=== PATIENT | male | born 1945 | race Caucasian/White ===

== ENCOUNTER 2018-01-26 11:12 | Inpatient (IN) | payer OTHER ==
[2018-01-26] MEDS ORDERED: NA CHLORIDE 0.9% 3,000 ML ONE (11:40)
--- NOTE | 2018-01-26 12:22 | RAD REPORT ---
EXAM DESCRIPTION: RAD - Chest Single View - 01/26/2018 12:13 pm CLINICAL HISTORY: FEVER Chest pain. COMPARISON: No comparisons FINDINGS: Portable technique limits examination quality. Several pulmonary nodules are present bilaterally, largest measuring about 2 cm in the right upper lo be. The lungs are clear of acute infiltrate. The heart is normal in size. No displaced fractures.Left -sided port catheter tip in the SVC.
[2018-01-26 12:33] LABS: Absolute Lymphocytes (CBC) 0.1 K/uL (0.7-4.9); Absolute Monocytes 0.1 K/uL (0.1-1.3); Absolute Neutrophil 1.6 K/uL (1.8-8.0); Basophils % 0.1 % (0-1.3); Eosinophils % 0.8 % (0-4.4); Hematocrit 35.5 % (39.6-49.0); Lymphocytes % 3.9 % (15.3-44.8); MCH 28.4 pg (27.0-35.0); MCV 84.8 fL (80-100); MPV 7.6 fL (7.6-11.3); Monocytes % 6.2 % (3.3-12.3); RBC Red Blood Cell Count 4.18 M/uL (4.33-5.43)
[2018-01-26 12:34] LABS: Protime INR 1.34
[2018-01-26 12:36] LABS: ALT/SGPT 32 U/L (12-78); AST/SGOT 32 U/L (15-37); Albumin 2.8 g/dL (3.4-5.0); Alkaline Phosphatase 62 U/L (45-117); BUN Blood Urea Nitrogen 62 mg/dL (7-18); Bicarbonate 17 mmol/L (21-32); Bilirubin Direct 0.3 mg/dL (0-0.2); Bilirubin Total 0.6 mg/dL (0.2-1.0); CKMB Creatine Kinase MB < 1.0 ng/mL (0.3-3.6); Creatine Phosphokinase 222 U/L (39-308); Glucose Level 93 mg/dL (74-106); Lipase 301 U/L (73-393); Protein, Total 7.9 g/dL (6.4-8.2); Sodium Level 127 mmol/L (136-145); Troponin (Emerg Dept Use Only) < 0.02 ng/mL (0.0-0.045)
--- NOTE | 2018-01-26 13:00 | ER ---
Nurse's Notes [facility] Name: Camilla Haque Age: 72 yrs Sex: Male : 1945 Arrival Date: 01/26/2018 Time: 11:17 Bed 8 Private MD: out of town, doctor Diagnosis: Neutropenia, unspecified;Fever, unspecified;Urinary tract infection, site not specified Presentation: 01/26 11:19 Presenting complaint: Patient states: I have stage 4 bladder cancer and a I had a chemo la1 treatment on Saturday, starting on Saturday I have been having low grade intermittent fever and night sweats. Transition of care: patient was not received from another setting of care. Transition of care: patient was not received from another setting of care. Onset of symptoms was January 26, 2018. Risk Assessment: Do you want to hurt yourself or someone else? Patient reports no desire to harm self or others. Initial Sepsis Screen: Does the patient meet any 2 criteria? No. Patient's initial sepsis screen is negative. Does the patient have a suspected source of infection? No. Patient's initial sepsis screen is negative. Care prior to arrival: None. 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 - Social history:: Smoking status: Patient/guardian denies using tobacco. - Ebola Screening: : No symptoms or risks identified at this time. Screenin:10 Abuse screen: Denies threats or abuse. Denies injuries from another. Nutritional hb screening: No deficits noted. Tuberculosis screening: No symptoms or risk factors identified. Fall Risk Total Levin Fall Scale indicates Low Risk Score (25-44 pts). Fall prevention measures have been instituted. Side Rails Up X 2 Frequent Obs/Assesments occuring Family Present and informed to notify staff if they need to leave bedside As available Patient and Family Educated on Fall Prevention Program and strategies. Assessment: 11:44 General: Appears in no apparent distress. Behavior is calm, cooperative. Pain: Denies hb pain. Neuro: Level of Consciousness is awake, alert, obeys commands, Oriented to person, place, time, situation. Cardiovascular: Capillary refill < 3 seconds Patient's skin is warm and dry. Respiratory: Airway is patent Respiratory effort is even, unlabored, Respiratory pattern is regular, symmetrical, Breath sounds are clear bilaterally. GI: No signs and/or symptoms were reported involving the gastrointestinal system. : No signs and/or symptoms were reported regarding the genitourinary system. EENT: No signs and/or symptoms were reported regarding the EENT system. Derm: Skin is pink, warm \T\ dry. Musculoskeletal: No signs and/or symptoms reported regarding the musculoskeletal system. 12:30 Reassessment: Patient appears in no apparent distress at this time. No changes from hb previously documented assessment. Patient and/or family updated on plan of care and expected duration. Pain level reassessed. Patient is alert, oriented x 3, equal unlabored respirations, skin warm/dry/pink. Vital Signs: 11:20 BP 112 / 75; Pulse 110; Resp 19; Temp 100.6; Pulse Ox 98% on R/A; Weight 83.01 kg; la1 Height 5 ft. 9 in. (175.26 cm); 13:58 BP 108 / 58; Pulse 89; Resp 16 S; Pulse Ox 100% on R/A; Pain 0/10; sg 15:01 BP 133 / 87 LA Sitting (auto/reg); Pulse 95; Resp 16; Pulse Ox 100% on R/A; Pain 0/10; jp3 15:30 Temp 101.8(O); jp3 16:11 Temp 98.9; kr2 16:20 BP 145 / 90; Pulse 115; Resp 17; Temp 98.9; Pulse Ox 100% on R/A; Pain 0/10; sg 11:20 Body Mass Index 27.02 (83.01 kg, 175.26 cm) la1 ED Course: 11:17 Patient arrived in ED. mr 11:18 out of town, doctor is Private Physician. mr 11:20 Triage completed. la1 11:21 Arm band placed on right wrist. la1 11:26 Christiano Gracia NP is PHCP. pm1 11:26 Malik Thayer MD is Attending Physician. pm1 11:30 Alex Urbina RN is Primary Nurse. sg 11:45 No provider procedures requiring assistance completed. Patient did not have IV access sg during this emergency room visit. 12:00 Inserted saline lock: 20 gauge in right antecubital area, using aseptic technique. jp3 Blood collected. 12:00 Initial lab(s) drawn, by me, sent to lab. First set of blood cultures drawn Flu and/or jp3 RSV swab sent to lab. 12:11 X-ray completed. Portable x-ray completed in exam room. Patient tolerated procedure sg4 well. 12:14 Chest Single View XRAY In Process Unspecified. EDMS 12:15 Second set of blood cultures drawn by me. jp3 12:20 Urine collected: clean catch specimen, cloudy, hermann colored, Amount Voided: 80mL EKG jp3 done, by ED staff, reviewed by Christiano Gracia NP. 12:24 Placed in gown. Bed in low position. Call light in reach. Side rails up X 1. Side rails jp3 up X2. classroom monitor on. Pulse ox on. NIBP on. 12:28 Notified ED physician of a critical lab result(s). 1.8 WBC and PLT 41, DRU Alvarado em notified. 12:40 Flu Sent. jp3 12:58 Naa Domingo MD is Hospitalizing Provider. pm1 14:10 Notified the admitting physician of a critical lab result(s), bands 9, called to Dr. Debbie Domingo, no new orders at this time. 15:04 Warm blanket given. Pillow given. jp3 15:07 Urine Culture Sent. jp3 15:35 Notified Nurse Practitioner and/or Physician Punching Machine Operator of vital signs. kr2 Administered Medications: 11:58 Drug: NS 0.9% (30 ml/kg) 30 ml/kg Route: IV; Rate: bolus; Site: right antecubital; hb 13:00 Drug: Cefepime 2 grams Route: IVPB; Rate: 200 ml/hr; Infused Over: 30 mins; Site: right sg antecubital; 17:13 Follow up: Response: No adverse reaction; IV Status: Completed infusion sg 15:42 Drug: Tylenol 1000 mg Route: PO; kr2 16:20 Follow up: Response: No adverse reaction; Temperature is decreased sg Outcome: 13:00 Decision to Hospitalize by Provider. pm1 14:20 Admitted to Tele accompanied by jyoti, via stretcher, room 427, with chart, Report sg called to AMAN Escalona 14:20 Condition: stable 14:20 Instructed on the need for admit, safety practices, Demonstrated understanding of instructions. 16:44 Patient left the ED. em Signatures: Dispatcher [employer] EDAlex Scott, RN RN parvez Jose AlfredoLidia mr Anderson, Caio, WINDOWS SYSTEMS ARCHITECT WINDOWS SYSTEMS ARCHITECT em David Winters RN RN la1 Christiano Gracia, BI DATA MODELER BI DATA MODELER pm1 Raine Ma RN RN hb Reaves, Karey, RN RN nick2 Isma Rene jp3 Jelly Rodríguez sg4
--- NOTE | 2018-01-26 13:00 | EDPHYS ---
Physician Documentation [facility] Name: Camilla Haque Age: 72 yrs Sex: Male : 1945 Arrival Date: 01/26/2018 Time: 11:17 Bed 8 Private MD: out of town, doctor ED Physician Malik Thayer HPI: 01/26 12:00 This 72 yrs old Male presents to ER via Ambulatory with complaints of Fever. pm1 12:00 The patient reports fever, that was measured at 100.6 degrees Fahrenheit. Onset: The pm1 symptoms/episode began/occurred 3 day(s) ago. Modifying factors: Recent chemotherapy on Saturday. First chemotherapy treatment for stage 4 bladder cancer. Associated signs and symptoms: Pertinent positives: chills, night sweats, Occasional cough, Pertinent negatives: abdominal pain, altered mental status, chest pain, diarrhea, headache, shortness of breath, vomiting. Severity of symptoms: in the emergency department the symptoms are unchanged. The patient has not experienced similar symptoms in the past. chemotherapy on Saturday. patient with a history of stage 4 bladder cancer treated with neobladder surgery at the beginning of the year. First treatment of chemotherapy on Saturday. Jorge A Galloway MD Oncologist at [facility]. 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 - Social history:: Smoking status: Patient/guardian denies using tobacco. - Ebola Screening: : No symptoms or risks identified at this time. ROS: 12:00 Eyes: Negative for injury, pain, redness, and discharge, ENT: Negative for injury, pm1 pain, and discharge, Neck: Negative for injury, pain, and swelling, Cardiovascular: Negative for chest pain, palpitations, and edema, Respiratory: Negative for shortness of breath, wheezing, and pleuritic chest pain. Occasional cough Abdomen/GI: Negative for abdominal pain, nausea, vomiting, diarrhea, and constipation, Back: Negative for injury and pain, : Negative for injury, bleeding, discharge, and swelling, MS/Extremity: Negative for injury and deformity, Skin: Negative for injury, rash, and discoloration, Neuro: Negative for headache, weakness, numbness, tingling, and seizure. 12:00 Constitutional: Positive for chills, fever, Negative for poor PO intake. Exam: 12:00 Constitutional: This is a well developed, well nourished patient who is awake, alert, pm1 and in no acute distress. Head/Face: Normocephalic, atraumatic. Eyes: Pupils equal round and reactive to light, extra-ocular motions intact. Lids and lashes normal. Conjunctiva and sclera are non-icteric and not injected. Cornea within normal limits. Periorbital areas with no swelling, redness, or edema. ENT: Nares patent. No nasal discharge, no septal abnormalities noted. Tympanic membranes are normal and external auditory canals are clear. Oropharynx with no redness, swelling, or masses, exudates, or evidence of obstruction, uvula midline. Mucous membranes moist. Neck: Trachea midline, no thyromegaly or masses palpated, and no cervical lymphadenopathy. Supple, full range of motion without nuchal rigidity, or vertebral point tenderness. No Meningismus. Chest/axilla: Normal chest wall appearance and motion. Nontender with no deformity. No lesions are appreciated. Cardiovascular: Regular rate and rhythm with a normal S1 and S2. No gallops, murmurs, or rubs. Normal PMI, no JVD. No pulse deficits. Respiratory: Lungs have equal breath sounds bilaterally, clear to auscultation and percussion. No rales, rhonchi or wheezes noted. No increased work of breathing, no retractions or nasal flaring. 12:00 Back: No spinal tenderness. No costovertebral tenderness. Full range of motion. Skin: Warm, dry with normal turgor. Normal color with no rashes, no lesions, and no evidence of cellulitis. MS/ Extremity: Pulses equal, no cyanosis. Neurovascular intact. Full, normal range of motion. 12:00 Abdomen/GI: Inspection: scar(s), are noted in the umbilical area and suprapubic area, Bowel sounds: normal, Palpation: abdomen is soft and non-tender, in all quadrants. 12:00 Neuro: Orientation: is normal, Motor: is normal, Sensation: is normal, no obvious gross deficits. Vital Signs: 11:20 BP 112 / 75; Pulse 110; Resp 19; Temp 100.6; Pulse Ox 98% on R/A; Weight 83.01 kg; la1 Height 5 ft. 9 in. (175.26 cm); 13:58 BP 108 / 58; Pulse 89; Resp 16 S; Pulse Ox 100% on R/A; Pain 0/10; sg 15:01 BP 133 / 87 LA Sitting (auto/reg); Pulse 95; Resp 16; Pulse Ox 100% on R/A; Pain 0/10; jp3 15:30 Temp 101.8(O); jp3 16:11 Temp 98.9; kr2 16:20 BP 145 / 90; Pulse 115; Resp 17; Temp 98.9; Pulse Ox 100% on R/A; Pain 0/10; sg 11:20 Body Mass Index 27.02 (83.01 kg, 175.26 cm) la1 MDM: 11:27 Patient medically screened. pm1 12:58 Data reviewed: vital signs. Data interpreted: Pulse oximetry: on room air is 98 %. pm1 Interpretation: normal. Counseling: I had a detailed discussion with the patient and/or guardian regarding: the historical points, exam findings, and any diagnostic results supporting the discharge/admit diagnosis, lab results, radiology results, the need for further work-up and treatment in the hospital. 13:04 Physician consultation: Naa Domingo MD was called at 13:05, was contacted at 13:05, pm1 regarding admission, patient's condition, and will see patient. 01/26 11:27 Order name: Urine Culture pm1 01/26 11:27 Order name: Basic Metabolic Panel; Complete Time: 12:40 pm1 01/26 11:27 Order name: Blood Culture Adult (2) pm1 01/26 11:27 Order name: CBC with Diff; Complete Time: 14:07 pm1 01/26 11:27 Order name: Ckmb; Complete Time: 12:40 pm1 01/26 11:27 Order name: CPK; Complete Time: 12:40 pm1 01/26 11:27 Order name: Lactate; Complete Time: 12:40 pm1 01/26 11:27 Order name: LFT's; Complete Time: 12:40 pm1 01/26 11:27 Order name: Lipase; Complete Time: 12:40 pm1 01/26 11:27 Order name: Procalcitonin; Complete Time: 12:48 pm1 01/26 11:27 Order name: Protime (+inr); Complete Time: 12:40 pm1 01/26 11:27 Order name: Ptt, Activated; Complete Time: 12:40 pm1 01/26 11:27 Order name: Troponin (emerg Dept Use Only); Complete Time: 12:40 pm1 01/26 11:27 Order name: Urine Microscopic Only; Complete Time: 13:20 pm1 01/26 11:27 Order name: Chest Single View XRAY; Complete Time: 12:25 pm1 01/26 11:27 Order name: Accucheck; Complete Time: 12:01 pm1 01/26 11:27 Order name: Cardiac monitoring; Complete Time: 12:01 pm1 01/26 11:27 Order name: EKG - Nurse/Tech; Complete Time: 12:09 pm1 01/26 11:27 Order name: IV Saline Lock - Large Bore; Complete Time: 12:01 pm1 01/26 11:27 Order name: Labs collected and sent; Complete Time: 12:01 pm1 01/26 11:27 Order name: O2 Per Protocol; Complete Time: 12:01 pm1 01/26 11:27 Order name: O2 Sat Monitoring; Complete Time: 12:01 pm1 01/26 11:27 Order name: Urine Dipstick-Ancillary (obtain specimen); Complete Time: 12:34 pm1 01/26 11:27 Order name: Flu; Complete Time: 12:45 pm1 01/26 12:36 Order name: CBC Smear Scan; Complete Time: 13:32 EDMS 01/26 12:45 Order name: Urine Dipstick--Ancillary (enter results); Complete Time: 14:53 ms 01/26 13:53 Order name: Manual Differential; Complete Time: 14:07 EDMS Administered Medications: 11:58 Drug: NS 0.9% (30 ml/kg) 30 ml/kg Route: IV; Rate: bolus; Site: right antecubital; hb 13:00 Drug: Cefepime 2 grams Route: IVPB; Rate: 200 ml/hr; Infused Over: 30 mins; Site: right sg antecubital; 17:13 Follow up: Response: No adverse reaction; IV Status: Completed infusion sg 15:42 Drug: Tylenol 1000 mg Route: PO; kr2 16:20 Follow up: Response: No adverse reaction; Temperature is decreased sg Disposition: 01/27 11:11 Co-signature as Attending Physician, Malik Thayer MD. Disposition: 01/26/18 13:00 Hospitalization ordered by Naa Domingo for Inpatient Admission. Preliminary diagnosis are Neutropenia, unspecified, Fever, unspecified, Urinary tract infection, site not specified. - Bed requested for Telemetry/MedSurg (Inpatient). - Status is Inpatient Admission. em - Condition is Stable. - Problem is new. - Symptoms have improved. UTI on Admission? Yes Signatures: Dispatcher [employer] EDAlex Scott, RN RN sg Caio Anderson, DRYING MACHINE OPERATOR PACKAGE YARNS DRYING MACHINE OPERATOR PACKAGE YARNS em Kori Turcios RN RN ss David Winters RN RN la1 Christiano Gracia, CREDIT RISK REVIEW OFFICER CREDIT RISK REVIEW OFFICER pm1 Raine Ma RN AMAN Mala Michelle RN RN Malik Thayer MD MD Anna Winter RN RN kr2 Corrections: (The following items were deleted from the chart) 01/26 16:18 13:00 Hospitalization Ordered by Naa Domingo MD for Inpatient Admission. Preliminary ss diagnosis is Neutropenia, unspecified; Fever, unspecified; Urinary tract infection, site not specified. Bed requested for Telemetry/MedSurg (Inpatient). Status is Inpatient Admission. Condition is Stable. Problem is new. Symptoms have improved. UTI on Admission? Yes. pm1 16:18 16:18 01/26/2018 13:00 Hospitalization Ordered by Naa Domingo MD for Inpatient df Admission. Preliminary diagnosis is Neutropenia, unspecified; Fever, unspecified; Urinary tract infection, site not specified. Bed requested for Telemetry/MedSurg (Inpatient). Status is Inpatient Admission. Condition is Stable. Problem is new. Symptoms have improved. UTI on Admission? Yes. ss 16:44 16:18 01/26/2018 13:00 Hospitalization Ordered by Naa Domingo MD for Inpatient em Admission. Preliminary diagnosis is Neutropenia, unspecified; Fever, unspecified; Urinary tract infection, site not specified. Bed requested for Telemetry/MedSurg (Inpatient). Status is Inpatient Admission. Condition is Stable. Problem is new. Symptoms have improved. UTI on Admission? Yes. df
[2018-01-26 13:16] LABS: Urine Bacteria 20-50 /HPF (NONE SEEN); Urine Culture Reflex Order REFLEXED; Urine RBC NONE SEEN /HPF (NONE SEEN)
[2018-01-26 13:21] LABS: Blood Morphology Comment NOT SEEN (NOT SEEN); Platelet Estimate DECR; Urine White Blood Cell Casts OK
[2018-01-26] MEDS ORDERED: CEFEPIME 2 GM/200 ML BAG IV ONE (13:34)
[2018-01-26 14:50] LABS: Urine Blood 2+ (NEG); Urine Glucose NEGATIVE (NEG); Urine Protein 2+ (NEG); Urine Specific Gravity 1.015 (1.005-1.030)
[2018-01-26] MEDS ORDERED: ACETAMINOPHEN 500 MG TAB ONE (15:45)
--- NOTE | 2018-01-26 16:26 | P.HP ---
Certification for Inpatient Patient admitted to: Inpatient With expected LOS: >2 Midnights Patient will require the following post-hospital care: None Practitioner: I am a practitioner with admitting privileges, knowledge of patient current condition, hospital course, and medical plan of care. 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 Temp at that time was 102. Progressively getting worse. Patient's last chemotherapy was on Saturday and he started his First dose 2 weeks ago. Patient also started having some chills at the house. No other complaints to offer at this time and patient overall was doing well before the chemotherapy and now started having issues thus he decided to come to the ER. Patient has been seen at the [facility] for his chemotherapy and his oncology appointment. In the ER fever of 105 was noted. Allergies No Known Allergies Allergy (Verified 01/26/18 16:59) Home Medications: Atorvastatin Calcium 20 mg PO DAILY 01/26/18 Metoprolol Succinate [Toprol Xl] 100 mg PO DAILY 01/26/18 - Family History Father -: Lung disease, Cancer Notes: Lung Cancer Mother -: Cancer Notes: Lung CA mets to the brain Review of Systems 10-point ROS is otherwise unremarkable Physical Examination - Physical Exam General: Alert, In no apparent distress HEENT: Atraumatic, PERRLA, Mucous membr. moist/pink, EOMI, Sclerae nonicteric Neck: Supple, 2+ carotid pulse no bruit, No LAD, Without JVD or thyroid abnormality Respiratory: Clear to auscultation bilaterally, Normal air movement Cardiovascular: Regular rate/rhythm, Normal S1 S2 Gastrointestinal: Normal bowel sounds, No tenderness Musculoskeletal: No tenderness Integumentary: No rashes Neurological: Normal speech, Normal tone, Normal affect, Abnormal strength Lymphatics: No axilla or inguinal lymphadenopathy - Studies Laboratory Data (last 24 hrs) 01/26/18 12:00: PT 15.9 H, INR 1.34, APTT 28.4 01/26/18 12:00: WBC 1.8 L*, Hgb 11.9 L, Hct 35.5 L, Plt Count 44 L* 01/26/18 12:00: Sodium 127 L, Potassium 5.0, BUN 62 H, Creatinine 3.40 H, Glucose 93, Total Bilirubin 0.6, AST 32, ALT 32, Alkaline Phosphatase 62, Lipase 301 Microbiology Data (last 24 hrs): 01/26/18 11:50 Nasopharnyx Influenza Type A Antigen Screen - Final 01/26/18 11:50 Nasopharnyx Influenza Type B Antigen Screen - Final Assessment and Plan - Problems (Diagnosis) (1) Fever Current Visit: Yes Status: Acute Plan: Chemotherapy-induced fever most likely -chemotherapy done last . -absolute neutrophil count is more than 1600 at this time -blood culture urine culture an x-ray has been done at this time. Results are pending at this time as well. -will treat empirically with cefepime and ciprofloxacin at this time Qualifiers: Fever type: drug-induced Qualified Code(s): R50.2 - Drug induced fever (2) Chemotherapy induced neutropenia Current Visit: Yes Status: Acute Plan: Chemotherapy-induced neutropenia with last chemotherapy on -absolute neutrophil count is more than 1600 at this time -blood culture urine culture an x-ray has been done at this time. Results are pending at this time as well. -will treat empirically with cefepime and ciprofloxacin at this time (3) Lung nodule Current Visit: Yes Status: Acute Plan: Most likely metastasis disease -will get pulmonology on board for further assessment. -Patient will most likely need a followup lungs CT in about 1-2 months post discharge (4) Bladder cancer Current Visit: Yes Status: Chronic Plan: Stage IV bladder cancer with mets to Lung and Paraaortic LN -Status post resection at this time -will continue to monitor closely Qualifiers: Bladder location: unspecified site Qualified Code(s): C67.9 - Malignant neoplasm of bladder, unspecified Discharge Plan: Home Plan to discharge in: 48 Hours - Advance Directives Does patient have a Living Will: No Does patient have a Durable POA for Healthcare: No - Code Status/Comfort Care Code Status Assessed: Yes Critical Care: No
[2018-01-26] MEDS ORDERED: ACETAMINOPHEN 500 MG TAB PO PRN (16:50)
[2018-01-26] MEDS ORDERED: CEFEPIME 2 GM VIAL IV SCH (16:50)
[2018-01-26] MEDS ORDERED: NA CHLORIDE 0.9% 1,000 ML IV ONE (17:03)
[2018-01-26] MEDS: NA CHLORIDE 0.9% 1,000 ML IV SCH (17:25)
[2018-01-26] MEDS: CIPROFLOXACIN 400mg IV 400 MG/200 ML BAG IV SCH (20:08)
[2018-01-27] MEDS: CEFEPIME/SWI 2gm 2 GM/20 ML SYR IVP SCH ×3 (01:04→16:49)
[2018-01-27] MEDS: NA CHLORIDE 0.9% 1,000 ML IV SCH ×3 (04:15→22:50)
[2018-01-27 06:17] LABS: Absolute Lymphocytes (CBC) 0.2 K/uL (0.7-4.9); Absolute Monocytes 0.2 K/uL (0.1-1.3); Absolute Neutrophil 1.4 K/uL (1.8-8.0); Basophils % 0.1 % (0-1.3); Eosinophils % 0.2 % (0-4.4); Hematocrit 32.8 % (39.6-49.0); Lymphocytes % 11.2 % (15.3-44.8); MCH 28.4 pg (27.0-35.0); MCV 85.6 fL (80-100); MPV 7.5 fL (7.6-11.3); Monocytes % 8.6 % (3.3-12.3); RBC Red Blood Cell Count 3.83 M/uL (4.33-5.43)
[2018-01-27 06:25] LABS: Albumin 2.6 g/dL (3.4-5.0); Bilirubin Total 0.4 mg/dL (0.2-1.0); Magnesium 1.8 mg/dL (1.8-2.4); Phosphorus 3.4 mg/dL (2.5-4.9); Protein, Total 6.8 g/dL (6.4-8.2)
[2018-01-27] MEDS ORDERED: MAGNESIUM SULFATE 1 gm IVPB 1 GM/100 ML BAG IV ONE (06:34)
--- NOTE | 2018-01-27 07:05 | EKG ---
Test Date: 2018-01-26 Test Time: 12:07:22 Aed Trainer: HB MEASUREMENT RESULTS: Intervals: Rate: 93 [place]: 132 QRSD: 96 QT: 336 QTc: 417 [place]: P: 32 AZ: 132 QRS: 38 T: 41 INTERPRETIVE STATEMENTS: Sinus rhythm with occasional premature ventricular complexes Otherwise normal ECG No previous ECG available for comparison Electronically Signed On 01-27-18 07:04:28 CONSULTING PRACTICE DIRECTOR by Zuhair Chawla
[2018-01-27] MEDS: ACETAMINOPHEN 325 MG TABLET PO PRN ×3 (07:26→19:49)
[2018-01-27 08:05] LABS: Blood Morphology Comment NOT SEEN (NOT SEEN); Platelet Estimate DECR; Urine White Blood Cell Casts OK
[2018-01-27] MEDS: CIPROFLOXACIN 400mg IV 400 MG/200 ML BAG IV SCH ×2 (08:54→20:20)
--- NOTE | 2018-01-27 13:53 | P.PN ---
Subjective Date of Service: 01/27/18 Patient seen and examined at bedside with RN. Chart reviewed. Case discussed with heme oncologist. Overall patient is doing much better than before. Still continues to have fever overnight. Blood culture and urine culture blood ready are positive for Gram negative rods. Review of Systems 10-point ROS is otherwise unremarkable Physical Examination - Vital Signs Temperature: 98.2 F Blood Pressure: 115/62 Pulse: 76 Respirations: 18 Pulse Ox (%): 96 - Physical Exam General: Alert, In no apparent distress HEENT: Atraumatic, PERRLA, EOMI Neck: Supple, JVD not distended Respiratory: Clear to auscultation bilaterally, Normal air movement Cardiovascular: Regular rate/rhythm, Normal S1 S2 Gastrointestinal: Normal bowel sounds, No tenderness Musculoskeletal: No tenderness Integumentary: No rashes Neurological: Normal speech, Normal tone, Normal affect Lymphatics: No axilla or inguinal lymphadenopathy - Studies Laboratory Data (last 24 hrs) 01/26/18 12:00: WBC 1.8 L*, Hgb 11.9 L, Hct 35.5 L, Plt Count 44 L* Microbiology Data (last 24 hrs): 01/26/18 11:50 Nasopharnyx Influenza Type A Antigen Screen - Final 01/26/18 11:50 Nasopharnyx Influenza Type B Antigen Screen - Final Medications List Reviewed: Yes Assessment And Plan - Current Problems (Diagnosis) (1) Fever Onset Date: 01/27/18 Current Visit: Yes Status: Acute Plan: Chemotherapy-induced fever most likely -chemotherapy done last . -absolute neutrophil count is more than 1600 at this time -blood culture urine culture + for gram - rods thus far -Results are pending at this time as well. -will treat empirically with cefepime and ciprofloxacin at this time Qualifiers: Fever type: drug-induced Qualified Code(s): R50.2 - Drug induced fever (2) Chemotherapy induced neutropenia Onset Date: 01/27/18 Current Visit: Yes Status: Acute Plan: Chemotherapy-induced neutropenia with last chemotherapy on -absolute neutrophil count is more than 1600 at this time -will treat empirically with cefepime and ciprofloxacin at this time (3) Lung nodule Onset Date: 01/27/18 Current Visit: Yes Status: Acute Plan: Most likely metastasis disease -will get pulmonology on board for further assessment. -Patient will most likely need a followup lungs CT in about 1-2 months post discharge (4) Bladder cancer Onset Date: 01/27/18 Current Visit: Yes Status: Chronic Plan: Stage IV bladder cancer with mets to Lung and Paraaortic LN -Status post resection at this time -will continue to monitor closely Qualifiers: Bladder location: unspecified site Qualified Code(s): C67.9 - Malignant neoplasm of bladder, unspecified Discharge Plan: Home Plan to discharge in: 48 Hours - Code Status/Comfort Care Code Status Assessed: Yes Critical Care: No
[2018-01-27] MEDS ORDERED: NA CHLORIDE 0.9% 1,000 ML IV ONE (14:48)
[2018-01-27] MEDS: ATORVASTATIN 20 MG TAB PO SCH (20:21)
[2018-01-28] MEDS: CEFEPIME/SWI 2gm 2 GM/20 ML SYR IVP SCH ×3 (00:30→18:00)
[2018-01-28] MEDS: ACETAMINOPHEN 325 MG TABLET PO PRN ×4 (01:27→21:06)
[2018-01-28 04:21] LABS: Absolute Lymphocytes (CBC) 0.1 K/uL (0.7-4.9); Absolute Monocytes 0.2 K/uL (0.1-1.3); Absolute Neutrophil 1.6 K/uL (1.8-8.0); Basophils % 0.2 % (0-1.3); Eosinophils % 0.3 % (0-4.4); Hematocrit 27.7 % (39.6-49.0); Lymphocytes % 5.8 % (15.3-44.8); MCH 28.6 pg (27.0-35.0); MPV 8.5 fL (7.6-11.3)
[2018-01-28 04:52] LABS: Albumin 2.1 g/dL (3.4-5.0); Bilirubin Total 0.4 mg/dL (0.2-1.0); Magnesium 1.6 mg/dL (1.8-2.4); Phosphorus 1.6 mg/dL (2.5-4.9); Potassium 3.9 mmol/L (3.5-5.1)
[2018-01-28] MEDS ORDERED: MAGNESIUM SULFATE 1 gm IVPB 1 GM/100 ML BAG IV ONE (05:31)
[2018-01-28] MEDS ORDERED: POTASSIUM CL SA 10 MEQ TAB PO ONE (05:32)
[2018-01-28] MEDS ORDERED: POTASS/SODIUM PHOSPHATE 1 PKT POWD.PACK PO SCH ×2 (06:00→07:00)
[2018-01-28] MEDS: NA CHLORIDE 0.9% 1,000 ML IV SCH (06:20)
[2018-01-28] MEDS: POTASS/SODIUM PHOSPHATE 1 PKT POWD.PACK PO SCH ×3 (06:27→09:00)
--- NOTE | 2018-01-28 07:41 | P.PN ---
Subjective Date of Service: 01/28/18 Called to see patient because of low bicarb. Reviewed the chart and spoke with patient. States he feels better than when he came in. However his bicarb has decreased. He has a normal anion gap metabolic acidosis. This is most likely related to a renal tubular acidosis as he is in acute renal failure. Patient also has bacteremia with sepsis. He has been afebrile throughout his hospital stay in spite of the bacteremia-maybe because he is leukopenic and unable to mount febrile response at this time. He is on antibiotics and hopefully he continues to improve. He has a leukopenia which is stable. He may benefit in light of the gram-negative bacteremia with Neupogen. Continue to monitor patient's hemodynamics closely. Review of Systems 10-point ROS is otherwise unremarkable Physical Examination - Vital Signs Temperature: 99.2 F Blood Pressure: 111/56 Pulse: 95 Respirations: 19 Pulse Ox (%): 100 - Physical Exam General: Alert, In no apparent distress, Oriented x3 Respiratory: Clear to auscultation bilaterally, Normal air movement Cardiovascular: Regular rate/rhythm, Normal S1 S2, No murmurs - Studies Medications List Reviewed: Yes Assessment & Plan - Problems (Diagnosis) (1) Metabolic acidosis Current Visit: Yes Status: Acute (2) Normal anion gap metabolic acidosis Current Visit: Yes Status: Acute (3) Renal tubular acidosis Current Visit: Yes Status: Acute (4) Acute renal failure Current Visit: Yes Status: Acute Qualifiers: Acute renal failure type: with acute tubular necrosis Qualified Code(s): N17.0 - Acute kidney failure with tubular necrosis (5) Bacteremia Current Visit: Yes Status: Acute (6) Sepsis Current Visit: Yes Status: Acute (7) Fever and neutropenia Current Visit: Yes Status: Acute (8) Status post chemotherapy Current Visit: Yes Status: Acute (9) Bladder cancer Onset Date: 01/27/18 Current Visit: Yes Status: Chronic Qualifiers: Bladder location: unspecified site Qualified Code(s): C67.9 - Malignant neoplasm of bladder, unspecified - Plan Plan: 1. Will consider supporting and with IV bicarb and then continue with oral bicarb until his renal function stabilizes 2. Continue IV antibiotics and monitor patient's hemodynamics 3. Continue with IV hydration 4. Change IV fluid as patient is slightly hyperchloremic 5. Await culture and sensitivities 6. Continue monitoring white blood cell count and if starts to decrease in light of bacteremia consider Neulasta 7. GI and DVT prophylaxis Discharge Plan: Home Plan to discharge in: Greater than 2 days - Advance Directives Does patient have a Living Will: No Does patient have a Durable POA for Healthcare: No - Code Status/Comfort Care Code Status Assessed: Yes Code Status: Full Code Critical Care: No Time Spent Managing PTS Care (In Minutes): 30
[2018-01-28] MEDS ORDERED: SODIUM BICARB 50 MEQ/50ML VIAL IV ONE (08:00)
[2018-01-28] MEDS: METOPROLOL XL 100 MG TAB PO SCH (08:33)
[2018-01-28] MEDS: CIPROFLOXACIN 400mg IV 400 MG/200 ML BAG IV SCH (08:33)
[2018-01-28] MEDS ORDERED: D5W 1,000 ML with NA BICARB 8.4% 150 MEQ IV SCH ×2 (12:00)
[2018-01-28 12:13] LABS: Blood Gas Oxyhemoglobin 96.1 % (94-97); Blood O2 Saturation 96.1 % (92-98.5)
--- NOTE | 2018-01-28 13:58 | RAD REPORT ---
EXAM DESCRIPTION: US - Renal Ultrasound-Complete - 01/28/2018 1:33 pm CLINICAL HISTORY: . COMPARISON: None. FINDINGS: The right kidney measures 13 cm with a normal echotexture. Mild to moderate right hydronep hrosis The left kidney measures 13 cm with a normal echotexture. The bladder has been resected. No gross abnormality of a neobladder is seen IMPRESSION: Mild to moderate right hydronephrosis.
--- NOTE | 2018-01-28 15:15 | P.PN ---
Subjective Date of Service: 01/28/18 Patient seen and examined at bedside with RN. Chart reviewed. Case discussed with heme oncologist. Overall patient is doing much better than before. Still continues to have fever overnight. Blood culture and urine culture are + for Klebsiella. BMP this AM consistent with Low CO2 and ARF possible RTA Review of Systems 10-point ROS is otherwise unremarkable Physical Examination - Vital Signs Temperature: 98.2 F Blood Pressure: 130/63 Pulse: 83 Respirations: 18 Pulse Ox (%): 100 - Physical Exam General: Alert, Oriented x3, Acute distress HEENT: Atraumatic, PERRLA, EOMI Neck: Supple, JVD not distended Respiratory: Normal air movement, Expiratory wheezes Cardiovascular: Regular rate/rhythm, Normal S1 S2 Gastrointestinal: Normal bowel sounds, Soft and benign, Non-distended, No tenderness Musculoskeletal: No tenderness Integumentary: No rashes Neurological: Normal speech, Normal tone, Normal affect Lymphatics: No axilla or inguinal lymphadenopathy - Studies Microbiology Data (last 24 hrs): 01/26/18 12:30 Clean Catch Urine [place] Count - Final >100,000 CFU/ML. 01/26/18 12:30 Clean Catch Urine - Final Klebsiella Pneumoniae Medications List Reviewed: Yes Assessment And Plan - Current Problems (Diagnosis) (1) Sepsis Current Visit: Yes Status: Acute Plan: Sepsis 2.2 to UTI and Bactermia -chemotherapy done last . -absolute neutrophil count today is 1600 at this time -urine culture + for Klebisella. blood Culture pending -Continue with IV cefepime at this time (2) UTI (urinary tract infection) Current Visit: Yes Status: Acute Plan: See # 1 Qualifiers: Urinary tract infection type: acute cystitis Hematuria presence: without hematuria Qualified Code(s): N30.00 - Acute cystitis without hematuria (3) Acute renal failure Current Visit: Yes Status: Acute Plan: ARF with Metabolic acidosis -Nephrology consulted. -IV fluids with Bicarb Qualifiers: Acute renal failure type: with acute tubular necrosis Qualified Code(s): N17.0 - Acute kidney failure with tubular necrosis (4) Bacteremia Current Visit: Yes Status: Acute Plan: Blood culture pending (5) Chemotherapy induced neutropenia Onset Date: 01/27/18 Current Visit: Yes Status: Acute Plan: Chemotherapy-induced neutropenia with last chemotherapy on -absolute neutrophil count is more than 1600 at this time -If no Improvement in Neutropenia will start on Filgrastim with recent fever (6) Lung nodule Onset Date: 01/27/18 Current Visit: Yes Status: Acute Plan: Most likely metastasis disease -will get pulmonology on board for further assessment. -Patient will most likely need a followup lungs CT in about 1-2 months post discharge (7) Bladder cancer Onset Date: 01/27/18 Current Visit: Yes Status: Chronic Plan: Stage IV bladder cancer with mets to Lung and Paraaortic LN -Status post resection at this time -Renal U/S with Hydronephrosis -CT abd and Pelvis pending Qualifiers: Bladder location: unspecified site Qualified Code(s): C67.9 - Malignant neoplasm of bladder, unspecified Discharge Plan: Home Plan to discharge in: 24 Hours - Code Status/Comfort Care Code Status Assessed: Yes Critical Care: No
[2018-01-28 16:30] LABS: Absolute Lymphocytes (CBC) 0.1 K/uL (0.7-4.9); Absolute Monocytes 0.2 K/uL (0.1-1.3); Absolute Neutrophil 2.5 K/uL (1.8-8.0); Basophils % 0.3 % (0-1.3); Eosinophils % 0.5 % (0-4.4); Hematocrit 26.5 % (39.6-49.0); Lymphocytes % 3.2 % (15.3-44.8); MCH 28.7 pg (27.0-35.0); MCV 84.4 fL (80-100); MPV 7.5 fL (7.6-11.3); Monocytes % 5.8 % (3.3-12.3); RBC Red Blood Cell Count 3.15 M/uL (4.33-5.43)
[2018-01-28] MEDS ORDERED: NA CHLORIDE 0.9% 1,000 ML IV ONE (17:00)
[2018-01-28 17:02] LABS: Platelet Estimate DECR
[2018-01-28 17:03] LABS: Blood Morphology Comment NOT SEEN (NOT SEEN); Dohle Bodies NOTED; Hypochromasia 1+
--- NOTE | 2018-01-28 18:36 | RAD REPORT ---
EXAM DESCRIPTION: CT - Abdomen Pelvis Wo Contrast - 01/28/2018 5:49 pm CLINICAL HISTORY: Abdominal pain bladder cancer with sepsis COMPARISON: None TECHNIQUE: Computed axial tomography of the abdomen and pelvis was obtained. IV was not requested. O ral contrast was given. Coronal reconstructions performed. All CT scans are performed using dose optimization technique as appropriate and may include automated exposure control or mA/KV adjustment according to patient size. FINDINGS: The evaluation of solid organs and vessels is limited secondary to the lack of contrast a dministration. The liver, spleen, pancreas, and adrenals appear grossly normal. Mild to moderate right hydronephrosis and mild left hydronephrosis seen. The ureters are dilated. The bladder has been resected. A a neobladder is present. Surgical clips are present throughout the pelv is and lower abdomen. 33 x 26 millimeter left periaortic lymph node is present at the level of the kidneys. Smaller additio nal periaortic/caval lymphadenopathy Small inguinal hernias Diverticula stem from the colon without evidence of diverticulitis. The appendix is normal. . IMPRESSION: Mild to moderate right and mild left hydronephrosis. Ureters are dilated to the level of the neobladder perhaps secondary to reflux or stricture. Periaortic/caval lymphadenopathy likely representing metastatic disease.
[2018-01-28 19:18] VITALS: O2SAT 100
--- NOTE | 2018-01-28 19:34 | P.CNS ---
Date of Consult: 01/28/18 Reason for Consult: BINTA and hyponatremia and acidosis History of Present Illness: A 72 Y/O man with PMhx of HTN, HLD ansd stage IV bladder CA S/P resection and neobladder in July radiacal paraa[address] resection, Pt presented with fever and chills Pt wasnt started on chemo due to elevated RFT ~2wks ago pt recived 1 dose of gemcitabine and carboplatinum in ER pt was febrile Cr 3.4 Had 1 episdoe of blood tinged urine today currently no chills, dysuria, nausea, vomiting or diarrhea Allergies No Known Allergies Allergy (Verified 01/26/18 16:59) Home Medications: Atorvastatin Calcium 20 mg PO DAILY 01/26/18 Metoprolol Succinate [Toprol Xl] 100 mg PO DAILY 01/26/18 - Past Medical/Surgical History Diabetic: No -: HTN -: Bladder Cancer- has Rafy bladder -: Tumor removal from bldder x3 -: Rafy bladder - Family History Father Medical History: Lung disease, Cancer Notes: Lung Cancer Mother Medical History: Cancer Notes: Lung CA mets to the brain - Social History Alcohol use: No CD- Drugs: No Caffeine use: No Place of Residence: Home Physical Examination Temp Pulse Resp BP Pulse Ox 98.7 F 83 19 108/66 100 01/28/18 18:00 01/28/18 18:00 01/28/18 18:00 01/28/18 18:00 01/28/18 18:00 General: Oriented x3 HEENT: Atraumatic Neck: Supple, Without JVD or thyroid abnormality Respiratory: Clear to auscultation bilaterally Cardiovascular: No edema, Regular rate/rhythm, Normal S1 S2 Gastrointestinal: Normal bowel sounds, Non-distended, No tenderness - Problems (1) Acute renal failure Current Visit: Yes Status: Acute Qualifiers: Acute renal failure type: with acute tubular necrosis Qualified Code(s): N17.0 - Acute kidney failure with tubular necrosis (2) Bacteremia Current Visit: Yes Status: Acute (3) Chemotherapy induced neutropenia Onset Date: 01/27/18 Current Visit: Yes Status: Acute (4) Fever and neutropenia Current Visit: Yes Status: Acute (5) Lung nodule Onset Date: 01/27/18 Current Visit: Yes Status: Chronic (6) Normal anion gap metabolic acidosis Current Visit: Yes Status: Acute (7) Bladder cancer Onset Date: 01/27/18 Current Visit: Yes Status: Chronic Qualifiers: Bladder location: unspecified site Qualified Code(s): C67.9 - Malignant neoplasm of bladder, unspecified Conclusions/Impression: A 72 Y/O man with PMhx of HTN, HLD ansd stage IV bladder CA S/P resection and neobladder in July radiacal [address] resection, Pt presented with fever and chills Pt wasnt started on chemo due to elevated RFT ~2wks ago pt recived 1 dose of gemcitabine and carboplatinum in ER pt was febrile Cr 3.4 Had 1 episdoe of blood tinged urine today currently no chills, dysuria, nausea, vomiting or diarrhea BINTA Cr from earlier this month ~1.5 Likely due to sepsis and obstructive uropathy US; B/L hydro Urology evaluation will switch fluid to R/L Labs Q12hrs Monitor Ca and K Septic shock bcx: GNR Cont cefepime HAGMA + Resp alkalosis Res alkalosis likely from fever Met acidosis from BINTA will switch fluid to R/L Metastatic bladder CA Oncology evaluation
[2018-01-28] MEDS: Ringers Lactate 1,000 ML IV SCH (20:00)
[2018-01-28] MEDS ORDERED: Ringers Lactate 1,000 ML IV ONE (20:12)
[2018-01-28] MEDS: ATORVASTATIN 20 MG TAB PO SCH (20:27)
[2018-01-28 21:09] LABS: Albumin 2.2 g/dL (3.4-5.0); Bilirubin Total 0.4 mg/dL (0.2-1.0); Potassium 4.4 mmol/L (3.5-5.1); Protein, Total 6.4 g/dL (6.4-8.2)
[2018-01-29] MEDS: CEFEPIME/SWI 2gm 2 GM/20 ML SYR IVP SCH ×3 (00:28→16:58)
[2018-01-29] MEDS: ACETAMINOPHEN 325 MG TABLET PO PRN ×2 (04:34→18:03)
[2018-01-29 05:04] LABS: Absolute Lymphocytes (CBC) 0.2 K/uL (0.7-4.9); Absolute Monocytes 0.3 K/uL (0.1-1.3); Basophils % 0.2 % (0-1.3); Hematocrit 28.6 % (39.6-49.0); Lymphocytes % 6.8 % (15.3-44.8); MCH 28.7 pg (27.0-35.0); MCV 84.2 fL (80-100); MPV 7.9 fL (7.6-11.3); Monocytes % 7.3 % (3.3-12.3)
[2018-01-29 05:17] LABS: Albumin 2.1 g/dL (3.4-5.0); Bilirubin Total 0.4 mg/dL (0.2-1.0); Phosphorus 2.4 mg/dL (2.5-4.9); Potassium 4.5 mmol/L (3.5-5.1)
[2018-01-29 05:41] LABS: Blood Morphology Comment NOT SEEN (NOT SEEN); Platelet Estimate DECR; Toxic Granulation 3+
[2018-01-29] MEDS: Ringers Lactate 1,000 ML IV SCH ×2 (06:28→15:06)
[2018-01-29] MEDS: METOPROLOL XL 100 MG TAB PO SCH (09:00)
[2018-01-29] MEDS: SODIUM BICARB 325 MG TAB PO SCH ×2 (10:45→21:22)
--- NOTE | 2018-01-29 15:21 | ECHO ---
HEIGHT: 5 ft 9 in WEIGHT: 201 lb 14.4 oz DATE OF STUDY: 01/29/[address]: Naa Domingo MD 2-DIMENSIONAL: YES M.MODE: YES DOPPLER: YES COLOR FLOW: YES TDS: PORTABLE: DEFINITY: BUBBLE STUDY: DIAGNOSIS: SEPSIS CARDIAC HISTORY: CATHERIZATION: SURGERY: PROSTHETIC VALVE: PACEMAKER: MEASUREMENTS (cm) DIASTOLIC (NORMALS) SYSTOLIC (NORMALS) IVSd 1.3 (0.6-1.2) LA Diam 4.5 (1.9-4.0) LVEF 54% LVIDd 3.8 (3.5-5.7) LVIDs 2.8 (2.0-3.5) %FS 27% LVPWd 1.2 (0.6-1.2) Ao Diam 3.2 (2.0-3.7) 2 DIMENSIONAL ASSESSMENT: RIGHT ATRIUM: NORMAL LEFT ATRIUM: DILATED RIGHT VENTRICLE: NORMAL LEFT VENTRICLE: LEFT VENTRICULAR HYPERTROPHY TRICUSPID VALVE: NORMAL MITRAL VALVE: NORMAL PULMONIC VALVE: NORMAL AORTIC VALVE: NORMAL PERICARDIAL EFFUSION: NONE AORTIC ROOT: NORMAL LEFT VENTRICULAR WALL MOTION: NORMAL DOPPLER/COLOR FLOW: MILD MITRAL REGURGITATION. AORTIC REGURGITATION. COMMENTS: NORMAL LEFT VENTRICULAR EJECTION FRACTION. LEFT VENTRICULAR HYPERTROPHY. DILATED LEFT ATRIUM. MILD MITRAL REGURGITATION. MILD AORTIC REGURGITATION. TECHNOLOGIST: TERE CUNHA
--- NOTE | 2018-01-29 15:31 | P.PN ---
Subjective Date of Service: 01/29/18 Patient seen and examined at bedside with RN. Chart reviewed. Case discussed with heme oncologist. Overall patient is doing much better than before. Still continues to have fever overnight. Blood culture and urine culture are + for Klebsiella. Review of Systems 10-point ROS is otherwise unremarkable Physical Examination - Vital Signs Temperature: 99.2 F Blood Pressure: 111/56 Pulse: 95 Respirations: 19 Pulse Ox (%): 100 - Physical Exam General: Alert, In no apparent distress HEENT: Atraumatic, PERRLA, EOMI Neck: Supple, JVD not distended Respiratory: Clear to auscultation bilaterally, Normal air movement Cardiovascular: Regular rate/rhythm, Normal S1 S2 Gastrointestinal: Normal bowel sounds, No tenderness Musculoskeletal: No tenderness Integumentary: No rashes Neurological: Normal speech, Normal tone, Normal affect Lymphatics: No axilla or inguinal lymphadenopathy - Studies Microbiology Data (last 24 hrs): 01/26/18 12:15 Blood - Blood Aerobic Blood Culture - Final Klebsiella Pneumoniae 01/26/18 12:15 Blood - Blood Gram Stain - Final 01/26/18 12:15 Blood - Blood Anaerobic Blood Culture - Final Klebsiella Pneumoniae 01/26/18 12:15 Blood - Blood Gram Stain - Final 01/26/18 12:00 Blood - Blood Aerobic Blood Culture - Final Klebsiella Pneumoniae 01/26/18 12:00 Blood - Blood Gram Stain - Final 01/26/18 12:00 Blood - Blood Anaerobic Blood Culture - Final Klebsiella Pneumoniae 01/26/18 12:00 Blood - Blood Gram Stain - Final 01/26/18 12:30 Clean Catch Urine [place] Count - Final >100,000 CFU/ML. 01/26/18 12:30 Clean Catch Urine - Final Klebsiella Pneumoniae Medications List Reviewed: Yes Assessment And Plan - Current Problems (Diagnosis) (1) Sepsis Current Visit: Yes Status: Acute Plan: Sepsis 2.2 to UTI and Bactermia -chemotherapy done last . -absolute neutrophil count today is 1600 at this time -urine culture + for Klebisella. blood Culture positive for Klebsiella -echocardiogram pending at this time -Continue with IV cefepime at this time will continue (2) UTI (urinary tract infection) Current Visit: Yes Status: Acute Plan: See # 1 Qualifiers: Urinary tract infection type: acute cystitis Hematuria presence: without hematuria Qualified Code(s): N30.00 - Acute cystitis without hematuria (3) Acute renal failure Current Visit: Yes Status: Acute Plan: ARF with Metabolic acidosis with improvement today -Nephrology consulted. Appreciated recommendations -started on oral bicarb at this time Qualifiers: Acute renal failure type: with acute tubular necrosis Qualified Code(s): N17.0 - Acute kidney failure with tubular necrosis (4) Bacteremia Current Visit: Yes Status: Acute Plan: Blood culture positive for Klebsiella. Currently on IV cefepime will go ahead and continue that here in the hospital (5) Chemotherapy induced neutropenia Onset Date: 01/27/18 Current Visit: Yes Status: Acute Plan: Chemotherapy-induced neutropenia with last chemotherapy on -absolute neutrophil count is more than 1600 at this time -If no Improvement in Neutropenia will start on Filgrastim with recent fever (6) Lung nodule Onset Date: 01/27/18 Current Visit: Yes Status: Chronic Plan: Most likely metastasis disease -will get pulmonology on board for further assessment. -Patient will most likely need a followup lungs CT in about 1-2 months post discharge (7) Bladder cancer Onset Date: 01/27/18 Current Visit: Yes Status: Chronic Plan: Stage IV bladder cancer with mets to Lung and Paraaortic LN -Status post resection at this time -Renal U/S with Hydronephrosis Leonard catheter has been inserted -CT scan with hydronephrosis with possible stricture. Patient advised to follow up with urology post discharge Qualifiers: Bladder location: unspecified site Qualified Code(s): C67.9 - Malignant neoplasm of bladder, unspecified Discharge Plan: Home Plan to discharge in: 48 Hours - Code Status/Comfort Care Code Status Assessed: Yes Critical Care: Yes
--- NOTE | 2018-01-29 17:58 | PN ---
Subjective: The patient is doing better. The patient is status post Leonard placement. The patient w as admitted with acute kidney injury secondary to prerenal. After hydration started, he has been imp roving. Physical Examination: Vital Signs: Blood pressure 129/77, pulse of 100. The patient had urine output over the night of 20 0 and after placement of Leonard is 850, currently putting around 200 . Chest: Clear to auscultation. Heart: S1, S2. Regular. Abdomen: Soft, nontender. Extremities: No edema. Laboratory Data: WBC 3.6, H and H 9.8/28.6, platelet of 22. Sodium 137, potassium 4.5, bicarb 21, B UN 35, creatinine 2.1, calcium 7.5, phosphorus 2.4, magnesium of 2. Current Medications: The patient is on includes: 1.Cefepime. 2.Atorvastatin. 3.Metoprolol 100 daily. 4.Tylenol. 5.LR 100 . 6.Sodium bicarb 1300 b.i.d. 7.Magnesium sulfate. Culture growing Klebsiella pneumonia, urine and blood. Sensitive to cephalosporin. Assessment And Plan: 1.Acute kidney injury secondary to prerenal, superimposed with toxic ATN and obstructive uropathy on the recovery phase, currently polyuric post obstruction. I am going to go ahead and increase IV flu ids to 125 and we will follow up the patient. 2.Acidosis secondary to obstructive uropathy, possible RTA with possible also secondary to the artif icial , I am going to go ahead and increase LR and send for urine electrolytes and we will monitor the patient. 3.Hypertension, controlled, optimal. Continue current medication. 4.Urinary tract infection, urosepsis, complicated with bacteremia. Continue cefepime. Follow up wi ID. 5.Bladder CA, status post chemo. We will follow up with the oncology. [facility]NA Voice ID: [id number] Report ID: [id number]
--- NOTE | 2018-01-29 19:49 | CON ---
INFECTIOUS DISEASE CONSULT History Of Present Illness: This is a 72-year-old male, coming in with the high fevers after chemoth erapy. The patient was found to have neutropenic and was started on cefepime. The patient grew Kleb siella pneumoniae in his urine and blood cultures, responding well. His white count is coming up. T he patient feels much better. No more fevers. Denies any headache, nausea, vomiting, chest pain, ab dominal pain, constipation, or diarrhea. Past medical history of bladder cancer stage IV with neobla dder, getting chemotherapy. Past Medical History: As per HPI. Surgical History: Nonsmoker, nondrinker. Family History: Noncontributory. Medication: Cefepime. See [facility] for other medication. Allergies: NO KNOWN DRUG ALLERGIES. Review of Systems: A 10-point review was performed. Physical Examination: General: This is a 72-year-old male, lying in bed, not in any acute distress. Vital signs: Temperature 98, pulse 85, respirations 18, blood pressure 130/73. HEENT: Unremarkable. Neck: Supple. Lungs: Basal crackles. Heart: S1, S2. Regular. Abdomen: Soft, nontender. Bowel sounds positive. Extremities: No edema. Laboratory Data: Shows WBC 3.6, up from 1.8; hemoglobin 9.8; platelets are 22. Chemistry shows sodi um 137, potassium 4.5, chloride 108, bicarb 21, BUN 35, creatinine 2.1, glucose is 104. Blood and urine culture growing Klebsiella pneumoniae, sensitive to cefepime. Assessment And Plan: Bacteremia and urinary tract infection secondary to Klebsiella pneumoniae. Fev ers and pancytopenia. Continue cefepime total of 2 weeks, can be switched to oral on discharge. NF/MODL Voice ID: [id number] Report ID: [id number]
[2018-01-29] MEDS: ATORVASTATIN 20 MG TAB PO SCH (21:22)
[2018-01-30] MEDS: CEFEPIME/SWI 2gm 2 GM/20 ML SYR IVP SCH ×3 (01:00→17:53)
[2018-01-30 01:26] VITALS: BMI 28.6
[2018-01-30] MEDS: Ringers Lactate 1,000 ML IV SCH ×3 (01:47→14:39)
[2018-01-30] MEDS: ACETAMINOPHEN 325 MG TABLET PO PRN ×2 (04:46→22:32)
[2018-01-30 07:46] LABS: UR MICROALBUMIN 4.9 mg/dL (< 1.9); Urine Microalbumin Excretion R 129.3 ug/min (< 20)
[2018-01-30] MEDS: ONDANSETRON 4 MG/2 ML VIAL IV PRN ×3 (10:19→22:32)
[2018-01-30] MEDS: SODIUM BICARB 325 MG TAB PO SCH ×2 (10:22→21:00)
[2018-01-30] MEDS: METOPROLOL XL 100 MG TAB PO SCH (10:22)
[2018-01-30 11:43] LABS: Absolute Lymphocytes (CBC) 0.4 K/uL (0.7-4.9); Absolute Monocytes 0.3 K/uL (0.1-1.3); Absolute Neutrophil 3.7 K/uL (1.8-8.0); Basophils % 0.1 % (0-1.3); Eosinophils % 1.2 % (0-4.4); Hematocrit 30.6 % (39.6-49.0); Lymphocytes % 8.6 % (15.3-44.8); MCH 28.4 pg (27.0-35.0); MCV 82.9 fL (80-100); MPV 8.4 fL (7.6-11.3); Monocytes % 6.1 % (3.3-12.3); RBC Red Blood Cell Count 3.69 M/uL (4.33-5.43)
[2018-01-30 12:04] LABS: Phosphorus 2.1 mg/dL (2.5-4.9); Potassium 3.9 mmol/L (3.5-5.1)
--- NOTE | 2018-01-30 13:11 | P.PN ---
Subjective Date of Service: 01/30/18 Patient seen and examined at bedside with RN. Chart reviewed. Case discussed with heme oncologist. Overall patient is doing much better than before. Still continues to have fever overnight. Blood culture and urine culture are + for Klebsiella. Review of Systems 10-point ROS is otherwise unremarkable Physical Examination - Vital Signs Temperature: 98.9 F Blood Pressure: 111/66 Pulse: 87 Respirations: 20 Pulse Ox (%): 99 - Physical Exam General: Alert, In no apparent distress HEENT: Atraumatic, PERRLA, EOMI Neck: Supple, JVD not distended Respiratory: Clear to auscultation bilaterally, Normal air movement Cardiovascular: Regular rate/rhythm, Normal S1 S2 Gastrointestinal: Normal bowel sounds, No tenderness Musculoskeletal: No tenderness Integumentary: No rashes Neurological: Normal speech, Normal tone, Normal affect Lymphatics: No axilla or inguinal lymphadenopathy - Studies Medications List Reviewed: Yes Assessment And Plan - Current Problems (Diagnosis) (1) Sepsis Current Visit: Yes Status: Acute Plan: Sepsis 2.2 to UTI and Bactermia -chemotherapy done last . -absolute neutrophil count today is 1600 at this time -urine culture + for Klebisella. blood Culture positive for Klebsiella -echocardiogram within normal limits of this time -Continue with IV cefepime at this time will continue -ID consulted recommends to continue cefepime for 2 weeks 06/22 - Qualifiers: Sepsis type: sepsis due to unspecified organism Qualified Code(s): A41.9 - Sepsis, unspecified organism (2) UTI (urinary tract infection) Current Visit: Yes Status: Acute Plan: See # 1 Qualifiers: Urinary tract infection type: acute cystitis Hematuria presence: without hematuria Qualified Code(s): N30.00 - Acute cystitis without hematuria (3) Bacteremia Current Visit: Yes Status: Acute Plan: Blood culture positive for Klebsiella. -Currently on IV cefepime for total of 2 weeks per ID recommendation (4) Acute renal failure Current Visit: Yes Status: Acute Plan: ARF with Metabolic acidosis with improvement today -Nephrology consulted. Appreciated recommendations -started on oral bicarb at this time -the 24 urine collection done at this time Qualifiers: Acute renal failure type: with acute tubular necrosis Qualified Code(s): N17.0 - Acute kidney failure with tubular necrosis (5) Chemotherapy induced neutropenia Onset Date: 01/27/18 Current Visit: Yes Status: Acute Plan: Chemotherapy-induced neutropenia with last chemotherapy on -absolute neutrophil count is more than 1600 at this time -If no Improvement in Neutropenia will start on Filgrastim with recent fever (6) Lung nodule Onset Date: 01/27/18 Current Visit: Yes Status: Chronic Plan: Most likely metastasis disease -will get pulmonology on board for further assessment. -Patient will most likely need a followup lungs CT in about 1-2 months post discharge (7) Bladder cancer Onset Date: 01/27/18 Current Visit: Yes Status: Chronic Plan: Stage IV bladder cancer with mets to Lung and Paraaortic LN -Status post resection at this time -Renal U/S with Hydronephrosis Leonard catheter has been inserted -CT scan with hydronephrosis with possible stricture. Patient advised to follow up with urology post discharge Qualifiers: Bladder location: unspecified site Qualified Code(s): C67.9 - Malignant neoplasm of bladder, unspecified
[2018-01-30] MEDS ORDERED: POTASSIUM CL SA 10 MEQ TAB PO ONE (19:44)
--- NOTE | 2018-01-30 21:33 | P.PN ---
Subjective Date of Service: 01/30/18 No new complaints Cr at baseline WBC improving cleared for discharge from nephrology point of view Need urology F/U as AN OP remove davis tomorrow Cont self cathterization Physical Examination - Vital Signs Temperature: 98.3 F Blood Pressure: 128/75 Pulse: 74 Respirations: 18 Pulse Ox (%): 99 - Physical Exam General: Oriented x3 HEENT: Atraumatic Neck: Supple, Without JVD or thyroid abnormality Respiratory: Clear to auscultation bilaterally, Normal air movement Cardiovascular: No edema, Regular rate/rhythm, Normal S1 S2, No rubs, No murmurs - Studies Medications List Reviewed: Yes Assessment And Plan - Current Problems (Diagnosis) (1) Acute renal failure Current Visit: Yes Status: Acute Qualifiers: Acute renal failure type: with acute tubular necrosis Qualified Code(s): N17.0 - Acute kidney failure with tubular necrosis (2) Bacteremia Current Visit: Yes Status: Acute (3) Chemotherapy induced neutropenia Onset Date: 01/27/18 Current Visit: Yes Status: Acute (4) Fever and neutropenia Current Visit: Yes Status: Acute (5) Lung nodule Onset Date: 01/27/18 Current Visit: Yes Status: Chronic (6) Normal anion gap metabolic acidosis Current Visit: Yes Status: Acute (7) Bladder cancer Onset Date: 01/27/18 Current Visit: Yes Status: Chronic Qualifiers: Bladder location: unspecified site Qualified Code(s): C67.9 - Malignant neoplasm of bladder, unspecified - Plan A 72 Y/O man with PMhx of HTN, HLD ansd stage IV bladder CA S/P resection and neobladder in July radiacal paraa[address] resection, Pt presented with fever and chills Pt wasnt started on chemo due to elevated RFT ~2wks ago pt recived 1 dose of gemcitabine and carboplatinum in ER pt was febrile Cr 3.4 Had 1 episdoe of blood tinged urine today currently no chills, dysuria, nausea, vomiting or diarrhea BINTA , resolved Cr from earlier this month ~1.5 Likely due to sepsis and obstructive uropathy US; B/L hydro reduce R/L rate to 60ml/hr will dc bicarb Septic shock bcx: GNR Cont cefepime HAGMA + Resp alkalosis Res alkalosis likely from fever Met acidosis from BINTA cont Bicarb Metastatic bladder CA Oncology evaluation
[2018-01-30] MEDS: ATORVASTATIN 20 MG TAB PO SCH (22:03)
[2018-01-31] MEDS: DOCUSATE NA 100 MG CAP PO SCH ×2 (01:08→08:34)
[2018-01-31] MEDS: CEFEPIME/SWI 2gm 2 GM/20 ML SYR IVP SCH ×2 (01:09→08:35)
[2018-01-31 02:55] LABS: Urine Total Volume 24 Hours 3800 ml
[2018-01-31 03:03] LABS: UR PROTEIN 65 mg/dL (<11.9)
[2018-01-31] MEDS: Ringers Lactate 1,000 ML IV SCH (05:24)
[2018-01-31 05:33] LABS: Phosphorus 2.2 mg/dL (2.5-4.9); Potassium 4.7 mmol/L (3.5-5.1)
[2018-01-31] MEDS: POTASS/SODIUM PHOSPHATE 1 PKT POWD.PACK PO SCH ×3 (08:26→11:00)
[2018-01-31] MEDS: METOPROLOL XL 100 MG TAB PO SCH (08:34)
--- NOTE | 2018-01-31 11:27 | P.PN ---
Subjective Date of Service: 01/31/18 No new complaints Cr at baseline WBC improving cleared for discharge from nephrology point of view Need urology F/U as AN OP Cont self cathterization Physical Examination - Vital Signs Temperature: 98.7 F Blood Pressure: 125/70 Pulse: 80 Respirations: 16 Pulse Ox (%): 97 - Studies Medications List Reviewed: Yes Assessment And Plan - Current Problems (Diagnosis) (1) Acute renal failure Current Visit: Yes Status: Acute Qualifiers: Acute renal failure type: with acute tubular necrosis Qualified Code(s): N17.0 - Acute kidney failure with tubular necrosis (2) Bacteremia Current Visit: Yes Status: Acute (3) Chemotherapy induced neutropenia Onset Date: 01/27/18 Current Visit: Yes Status: Acute (4) Fever and neutropenia Current Visit: Yes Status: Acute (5) Lung nodule Onset Date: 01/27/18 Current Visit: Yes Status: Chronic (6) Normal anion gap metabolic acidosis Current Visit: Yes Status: Acute (7) Bladder cancer Onset Date: 01/27/18 Current Visit: Yes Status: Chronic Qualifiers: Bladder location: unspecified site Qualified Code(s): C67.9 - Malignant neoplasm of bladder, unspecified - Plan A 72 Y/O man with PMhx of HTN, HLD ansd stage IV bladder CA S/P resection and neobladder in July [address] resection, Pt presented with fever and chills Pt wasnt started on chemo due to elevated RFT ~2wks ago pt recived 1 dose of gemcitabine and carboplatinum in ER pt was febrile Cr 3.4 Had 1 episdoe of blood tinged urine today currently no chills, dysuria, nausea, vomiting or diarrhea BINTA , resolved Cr from earlier this month ~1.5 Likely due to sepsis and prerenal azotemia US; B/L hydro will dc bicarb and IVF pt is aware about his obstruction and was instructed to self cath 4times daily , and follows regularly with his urologist instructed to follow up withing the next 2wks Septic shock bcx and Ucx: kelbsiella pneumonia Cont cefepime ID on Board , plan to switch to PO meds HAGMA + Resp alkalosis resolved Metastatic bladder CA Oncology evaluation
--- NOTE | 2018-01-31 16:03 | P.DS ---
Admission Date: 01/26/18 Discharge Date: 01/31/18 Disposition: ROUTINE DISCHARGE Discharge Condition: GOOD Consultations: Oncology -Dr Cohn Nephrology - Dr Willson ID - Dr Hutchins - Problems (1) Sepsis Current Visit: Yes Status: Acute Qualifiers: Sepsis type: sepsis due to unspecified organism Qualified Code(s): A41.9 - Sepsis, unspecified organism (2) UTI (urinary tract infection) Current Visit: Yes Status: Acute Qualifiers: Urinary tract infection type: acute cystitis Hematuria presence: without hematuria Qualified Code(s): N30.00 - Acute cystitis without hematuria (3) Bacteremia Current Visit: Yes Status: Acute (4) Acute renal failure Current Visit: Yes Status: Acute Qualifiers: Acute renal failure type: with acute tubular necrosis Qualified Code(s): N17.0 - Acute kidney failure with tubular necrosis (5) Chemotherapy induced neutropenia Onset Date: 01/27/18 Current Visit: Yes Status: Acute (6) Lung nodule Onset Date: 01/27/18 Current Visit: Yes Status: Chronic (7) Bladder cancer Onset Date: 01/27/18 Current Visit: Yes Status: Chronic Qualifiers: Bladder location: unspecified site Qualified Code(s): C67.9 - Malignant neoplasm of bladder, unspecified Brief History of Present Illness: This is a 72-year-old male with significant past medical history of Stage IV bladder cancer with Mets to lung and paraortic LN+, status post bladder resection who presented to the ED complaining of having some fever chills that has been going on Since (2 days). Temp at that time was 102. Progressively getting worse. Patient's last chemotherapy was on Saturday and he started his First dose 2 weeks ago. Patient also started having some chills at the house. No other complaints to offer at this time and patient overall was doing well before the chemotherapy and now started having issues thus he decided to come to the ER. Patient has been seen at the [facility] [place] for his chemotherapy and his oncology appointment. In the ER fever of 105 was noted. Hospital Course: Overall during the hospital stay patient remained stable patient was initially admitted to the hospital for sepsis most likely secondary to UTI and bacteremia. Patient was initially started on broad-spectrum antibiotics due to being neutropenic secondary to chemotherapy. Patient did well overall while here in the hospital. Patient blood culture and urine culture were done here in the hospital which was positive for urinary tract infection and bacteremia secondary to Klebsiella pneumoniae. Infectious disease was consulted who recommended the patient be continued on 2 weeks of antibiotics. Patient was switched over to Augmentin 500 mg for 2 weeks. Patient had marked resolution of his symptoms and remained 324 hr and then was discharged home under stable condition. While here in the hospital patient was also noted to be pancytopenic most likely secondary to his chemotherapy regimen along with thrombocytopenia again which was most likely secondary to his chemotherapy. His oncology was consulted who will be readjusting his chemotherapy medication before the next infusion. Patient while here in the hospital also had an abdominal CT done and found to have hydronephrosis. Patient stated that this is something that is chronic for him and he does have a urology that he follows up with for his annual bladder along with the hydronephrosis. Patient then was discharged home under stable condition was given a prescription for Augmentin 500 mg for total of 2 weeks. Vital Signs/Physical Exam: Temp Pulse Resp BP Pulse Ox 98.2 F 82 16 122/67 96 01/31/18 12:00 01/31/18 12:00 01/31/18 12:00 01/31/18 12:00 01/31/18 12:00 General: Alert, In no apparent distress HEENT: Atraumatic, PERRLA, EOMI Neck: Supple, JVD not distended Respiratory: Clear to auscultation bilaterally, Normal air movement Cardiovascular: Regular rate/rhythm, Normal S1 S2 Gastrointestinal: Normal bowel sounds, No tenderness Musculoskeletal: No tenderness Integumentary: No rashes Neurological: Normal speech, Normal tone, Normal affect Lymphatics: No axilla or inguinal lymphadenopathy Laboratory Data at Discharge: WBC 4.4 K/uL (4.3-10.9) D 01/30/18 11:16 Hgb 10.5 g/dL (13.6-17.9) L 01/30/18 11:16 Hct 30.6 % (39.6-49.0) L 01/30/18 11:16 Plt Count 48 K/uL (152-406) L* D 01/30/18 11:16 PT 15.9 SECONDS (9.5-12.5) H 01/26/18 12:00 INR 1.34 01/26/18 12:00 APTT 28.4 SECONDS (24.3-36.9) 01/26/18 12:00 Sodium 137 mmol/L (136-145) 01/31/18 04:42 Potassium 4.7 mmol/L (3.5-5.1) 01/31/18 04:42 BUN 26 mg/dL (7-18) H 01/31/18 04:42 Creatinine 1.60 mg/dL (0.55-1.3) H 01/31/18 04:42 Glucose 94 mg/dL (74-106) 01/31/18 04:42 Phosphorus 2.2 mg/dL (2.5-4.9) L 01/31/18 04:42 Magnesium 2.0 mg/dL (1.8-2.4) 01/30/18 11:16 Total Bilirubin 0.4 mg/dL (0.2-1.0) 01/29/18 04:43 AST 54 U/L (15-37) H 01/29/18 04:43 ALT 46 U/L (12-78) 01/29/18 04:43 Alkaline Phosphatase 53 U/L (45-117) 01/29/18 04:43 Lipase 301 U/L (73-393) 01/26/18 12:00 Home Medications: Atorvastatin Calcium 20 mg PO DAILY 01/26/18 Metoprolol Succinate [Toprol Xl] 100 mg PO DAILY 01/26/18 Amox/Clavulanate [Augmentin 500-125 mg Tab] 500 mg PO DAILY #14 tab 01/31/18 New Medications: Amox/Clavulanate [Augmentin 500-125 mg Tab] 500 mg PO DAILY #14 tab Patient Discharge Instructions: Please followup with your primary care provider and oncologist in about 1-2 days post discharge. New medication. Augmentin 500 mg daily for total of 2 weeks for your UTI and bacteremia that was positive for Klebsiella pneumoniae Diet: Regular Activity: Ad yelena Followup: Whitney Rendon MD [ACTIVE - CAN ADMIT] - 1 Week
[2018-01-31 17:40] VITALS: BP 136/71; TEMP 98.1
== END 2018-01-31 17:42 | disposition home or self-care (01) | DRG 871 ==
LOC: ER 11:12 → ERHOLD 13:18 → 4TH 16:29 → 3RD-ICU 01-28 13:04 → 4TH 01-30 01:10
PROVIDERS: ADMIT Family Medicine; ATTEND Family Medicine
DX: A41.9 Sepsis, unspecified organism (principal); N17.0 Acute kidney failure with tubular necrosis; N30.00 Acute cystitis without hematuria; N13.30 Unspecified hydronephrosis; E87.2 Acidosis; B96.1 Klebsiella pneumoniae [K. pneumoniae] as the cause of diseases classified elsewhere; D70.1 Agranulocytosis secondary to cancer chemotherapy; T45.1X5A Adverse effect of antineoplastic and immunosuppressive drugs, initial encounter; Y92.009 Unspecified place in unspecified non-institutional (private) residence as the place of occurrence of the external cause; C67.9 Malignant neoplasm of bladder, unspecified; I10 Essential (primary) hypertension
CPT/HCPCS: 36415; 71045; 74176; 76770; 80048; 80053; 80076; 81003; 81015; 82043; 82436; 82550; 82553; 82570; 82805; 83605; 83690; 83735; 84100; 84133; 84145; 84156; 84300; 84484; 85025; 85610; 85730; 87040; 87070; 87077; 87086; 87088; 87186; 87205; 87804; 93005; 93306; 96365; 96366; 96375; 99285; J0692; J0744; J2405; J3475; J7030